=== PATIENT | female | born 1980 | race African-American/Black ===

== ENCOUNTER 2016-11-08 17:18 | Emergency (ER) | payer MEDICAID ==
[~2016-11-08] VITALS: Ht 162.6 cm; Wt 68.0 kg
[2016-11-08 17:18] VITALS: BP 106/74
--- NOTE | 2016-11-08 17:18 | NUR ---
Patient was BIBA at this time.
--- NOTE | 2016-11-08 18:13 | NUR ---
PT PLACED IN BED 7 BY EMS.
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
--- NOTE | 2016-11-08 19:46 | NUR ---
Patient being evaluated by physician at bedside.
[2016-11-08 20:58] VITALS: BP 100/56
--- NOTE | 2016-11-08 20:58 | NUR ---
Chart checked and completed. The patient's care was reviewed and supervised by Arthur Bergeron RN.
--- NOTE | 2016-11-08 20:58 | NUR ---
Patient discharged with v/s stable. Written and verbal after care instructions given and explained. Patient alert, oriented and verbalized understanding of instructions. Ambulatory with steady gait. All questions addressed prior to discharge. ID band removed. Patient advised to follow up with PMD. Rx of ASPIRIN 81 MG given. Patient educated on indication of medication including possible reaction and side effects. Opportunity to ask questions provided and answered.
== END 2016-11-08 20:58 | disposition home or self-care (01) ==
LOC: MED 17:18
DX: R07.9 Chest pain, unspecified (principal); M79.602 Pain in left arm; F17.200 Nicotine dependence, unspecified, uncomplicated
CPT/HCPCS: 93005; 99283

== ENCOUNTER 2017-07-07 14:45 | Emergency (ER) | payer MEDICAID ==
[~2017-07-07] VITALS: Ht 162.6 cm; Wt 62.6 kg
[2017-07-07 14:50] VITALS: BP 113/79
--- NOTE | 2017-07-07 14:55 | NUR ---
PT BIBA TO BED 3.
--- NOTE | 2017-07-07 14:55 | NUR ---
Bharti stern in [facility] - 07/07/17 at 1456 by MONIQUE PT BIBA TO BED 3.
--- NOTE | 2017-07-07 15:00 | NUR ---
37 YO F BIBA FROM HOME W/ C/O SHARP, NONRADIATING SUBSTERNAL CHEST PAIN 02/05. PT REPORTS, "IT IS HARD TO BREATHE". UPON ASSESSMENT, RR WNL AND UNLABORED. NO S/S OF RESPIRATORY DISTRESS NOTED. PT SPEAKING IN FULL SENTENCES AND IS A & O, AT TIMES ANSWERS QUESTIONS INAPPROPRIATELY. STATES, "I HAVE BLOOD CLOTS ALL OVER MY BODY. SEE? I AM GOING TO ". NO S/S OF DVT. SKIN INTACT. CMS INTACT. VSS.
[2017-07-07 15:57] LABS: ALBUMIN 3.9 g/dL (3.4-5.0); ANION GAP 12.1 (8-16); CARBON DIOXIDE 28.6 mmol/L (21-32); CREATININE 0.8 mg/dL (0.6-1.3); POTASSIUM 3.7 mmol/L (3.5-5.1); TOTAL BILIRUBIN 0.2 mg/dL (0.0-1.0)
[2017-07-07 16:01] LABS: BASOPHILS # (AUTO) 0.2 K/uL (0.00-0.22); EOSINOPHILS # (AUTO) 0.1 K/uL (0-0.4); EOSINOPHILS % (AUTO) 2.3 % (0.0-4.0); HEMATOCRIT 43.2 % (36-48); HEMOGLOBIN 14.1 g/dL (12.0-16.0); LYMPHOCYTES # (AUTO) 1.5 K/uL (2.5-16.5); MEAN CORPUSCULAR HEMOGLOBIN 31 pg (27-31); MEAN CORPUSCULAR HGB CONC 33 g/dL (33-37); MEAN CORPUSCULAR VOLUME 95 fL (80-94); MONOCYTES # (AUTO) 0.5 K/uL (0.8-1.0); MONOCYTES % (AUTO) 7.6 % (1.7-9.3); NEUTROPHILS # (AUTO) 3.7 K/uL (1.8-7.7); PLATELET COUNT (AUTO) 238 K/uL (140-450); RED BLOOD CELL COUNT(AUTO) 4.54 MIL/uL (4.20-5.40); RED CELL DISTRIBUTION WIDTH 13.1 % (11.6-13.7)
[2017-07-07] MEDS ORDERED: NACL 0.9% 1,000 ML IV ONE (16:05)
[2017-07-07] MEDS ORDERED: LORazepam 2 MG/ML VIAL IVP ONE (16:05)
--- NOTE | 2017-07-07 16:12 | NUR ---
ATTEMPTED URINE COLLECTION. PT SAID, "I DO NOT FEEL LIKE IT". PT EDUCATED ON IMPORTANCE OF UA AND REPLIED, " I CAN REFUSE THAT AND I AM". ALL QUESTIONS ADDRESSED. PT CPNTINUES TO REFUSE. WILL ATTEMPT TO COLLECT AGAIN AND CONTINUE TO MONITOR.
--- NOTE | 2017-07-07 16:14 | NUR ---
attempted iv started. pt stated "i don't want an iv, i want treatment for my blood clots...tell the doctor that I want medication to go"; er md katrin kirk aware.
--- NOTE | 2017-07-07 16:30 | NUR ---
pt states that she used meth this morning and says it was laced and she wants to know what it was laced with. ER MD Jaquez informed.
--- NOTE | 2017-07-07 16:36 | NUR ---
pt refused po medication; er md wilkes made aware.
[2017-07-07] MEDS: LORazepam 1 MG TAB PO ONE (16:37)
--- NOTE | 2017-07-07 16:38 | NUR ---
OFFERED TO GIVE THE PRINTED RESULTS OF XRAY TO PT. PT REFUSED COPY OF CHEST XRAY RESULTS.
[2017-07-07 16:39] LABS: PROTHROMBIN TIME 9.4 secs (10.8-13.4)
--- NOTE | 2017-07-07 16:39 | NUR ---
pt signed d/c form and w/ info regarding methamphetamine abuse. Pt states, "I am not leaving until this doctor gives me something that treats the bloodclots in my brain, heart, lungs, and all through my body. This is ridiculous". Pt refused PO ativan as ordered. pt refuses to leave the bed and has become angry/irrational behavior observed. security called to assure safety of patients/staff.
--- NOTE | 2017-07-07 16:47 | NUR ---
WOOD PANEL INSPECTOR AT BEDSIDE.
--- NOTE | 2017-07-07 16:53 | NUR ---
PT REFUSING ALL MEDS, STILL REFUSES UA. PT STATES THAT SHE USED METH THIS MORNING, CLAIMS IT WAS LACED AND WANTS TO KNOW WHAT IT WAS LACED WITH. CLAIMS "HUNDREDS" OF BLOOD CLOTS ARE IN HER BRAIN AND THROUGHOUT HER BODY. XRAY PERFORMED AND SHOWED NO SIGNS OF CLOTS. PT STATING, "XRAY WAS DONE INCORRECTLY. THERE IS NO WAY IT DIDN'T SHOW BLOOD CLOTS. THAT'S RIDICULOUS, THERE ARE THOUSANDS. I CAN FEEL THEM EACH. THE DOCTOR KNOWS NOTHING. I AM NOT SCHIZOPHRENIC." Addendum: 07/07/17 at 1700 by [email or web address] PT REFUSING ALL MEDS, STILL REFUSES UA. PT STATES THAT SHE USED METH THIS MORNING, CLAIMS IT WAS LACED AND WANTS TO KNOW WHAT IT WAS LACED WITH. CLAIMS "HUNDREDS" OF BLOOD CLOTS ARE IN HER BRAIN AND THROUGHOUT HER BODY. XRAY PERFORMED AND SHOWED NO SIGNS OF CLOTS. PT STATING, "XRAY WAS DONE INCORRECTLY. THERE IS NO WAY IT DIDN'T SHOW BLOOD CLOTS. THAT'S RIDICULOUS, THERE ARE THOUSANDS. I CAN FEEL THEM EACH. THE DOCTOR KNOWS NOTHING. I AM NOT SCHIZOPHRENIC." ER MD NOE MADE AWARE.
[2017-07-07 17:18] VITALS: BP 117/72
--- NOTE | 2017-07-07 17:18 | NUR ---
D/C PAPERWORK SIGNED BY PT. PT AMBULATED TO LOBBY FROM BED 3 WITH EVEN AND STEADY GAIT. PT REQUESTED COPIES OF BLOOD WORK AND EKG. COPIES PROVIDED PER REQUEST. PT ON PHONE TALKING IN COMPLETE AND COHERENT SENTENCES AT THIS TIME AND STATES SOMEONE WILL COME PICK HER UP. ADDRESS OF HOSPITAL PROVIDED TO PT.
== END 2017-07-07 17:18 | disposition home or self-care (01) ==
LOC: MED 14:45
DX: F19.10 Other psychoactive substance abuse, uncomplicated (principal); J45.909 Unspecified asthma, uncomplicated; F20.9 Schizophrenia, unspecified
CPT/HCPCS: 36415; 71045; 80053; 84484; 85025; 85610; 85730; 93005; 99285; Q0092

== ENCOUNTER 2017-12-16 20:01 | Emergency (ER) | payer MEDICAID ==
[~2017-12-16] VITALS: Ht 162.6 cm; Wt 62.6 kg
[2017-12-16 20:13] VITALS: BP 131/75
--- NOTE | 2017-12-16 20:17 | NUR ---
TO LOBBY A/W BED, AMBULATORY, VSS, SARAH NOTED
[2017-12-16 20:19] VITALS: BP 131/75
--- NOTE | 2017-12-16 20:39 | NUR ---
PT TAKEN TO BED 6
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
--- NOTE | 2017-12-16 21:47 | NUR ---
Dr. Ivy evaluating patient at bedside.
--- NOTE | 2017-12-16 22:15 | NUR ---
Patient discharged with v/s stable. Pt left without discharge instructions after t-dap and wound care was complete. Pt advised to follow-up with PCP for any further problems after t-dap given. Patient verbalized understanding. Ambulatory with steady gait. Advised to follow up with PMD.
== END 2017-12-16 22:15 | disposition home or self-care (01) ==
LOC: MED 20:01
DX: S11.95XA Open bite of unspecified part of neck, initial encounter (principal); W54.0XXA Bitten by dog, initial encounter; Y93.89 Activity, other specified; Y92.89 Other specified places as the place of occurrence of the external cause; Y99.8 Other external cause status; J45.909 Unspecified asthma, uncomplicated
CPT/HCPCS: 90471; 90715; 99283

== ENCOUNTER 2018-01-21 13:46 | Emergency (ER) | payer MEDICAID ==
[~2018-01-21] VITALS: Ht 165.1 cm; Wt 70.3 kg
[2018-01-21 13:47] VITALS: BP 137/84
--- NOTE | 2018-01-21 13:47 | NUR ---
NADIA GALARZA, CURRENTLY AWAITING BED
--- NOTE | 2018-01-21 14:02 | NUR ---
PT TAKEN TO LOBBY TO WAIT FOR NEXT AVAILABLE BED W/ VSS VIA W/C.
--- NOTE | 2018-01-21 14:12 | NUR ---
PT TAKEN TO BED 4 AT THIS TIME VIA W/C
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
[2018-01-21] MEDS ORDERED: HYDROcodone/APAP 7.5/325 MG 1 TAB PO ONE (15:15)
--- NOTE | 2018-01-21 15:32 | NUR ---
US AT BEDSIDE
[2018-01-21 16:42] VITALS: BP 130/80
== END 2018-01-21 16:42 | disposition home or self-care (01) ==
LOC: MED 13:46
DX: L03.115 Cellulitis of right lower limb (principal); J45.909 Unspecified asthma, uncomplicated
CPT/HCPCS: 93971; 99284; Q0092

== ENCOUNTER 2018-04-04 12:47 | Emergency (ER) | payer MEDICAID ==
[~2018-04-04] VITALS: Ht 165.1 cm; Wt 64.4 kg
[2018-04-04 12:59] VITALS: BP 153/93
--- NOTE | 2018-04-04 13:02 | NUR ---
patient to lobby with steady gait to wait for available bed. vss. nad.
--- NOTE | 2018-04-04 13:15 | NUR ---
PATIENT AMBULATED TO ER BED 12.
--- NOTE | 2018-04-04 13:15 | NUR ---
bib self with c/o staple removal to right knee s/p knee surgery in Dec. Swelling noted to right knee. Verenice intact. No discharge noted. Patient denies any recent fever or chills. VSS; PATIENT POSITIONED FOR COMFORT; HOB ELEVATED; BEDRAILS UP X1; BED DOWN. ER MD MADE AWARE OF PT STATUS.
[2018-04-04] MEDS ORDERED: IBUPROFEN 800 MG TAB PO ONE (14:00)
[2018-04-04] MEDS ORDERED: traMADol 50 MG TAB PO ONE (14:00)
--- NOTE | 2018-04-04 14:14 | NUR ---
UNABLE TO GIVE PATIENT MEDICATIONS. PT DECIDED NOT TO WAIT TO RECEIVE MEDICATIONS AND LEFT ED. PT EDUCATED ON LEAVING FACILITY WITHOUT MEDICATIONS. ER MD DR. AWAD NOTIFIED.
[2018-04-04 14:15] VITALS: BP 140/87
--- NOTE | 2018-04-04 14:15 | NUR ---
PT GIVEN VERBAL DISCHARGE, PT DID NOT WAIT TO RECEIVE PAPER DISCHARGE. PATIENT VERBALIZED UNDERSTANDING. AMBULATORY WITH STEADY GAIT. ALL QUESTIONS ADDRESSED PRIOR TO DISCHARGE. ADVISED TO FOLLOW UP WITH PMD.
[2018-04-04] MEDS ORDERED: NEOMYCIN/POLYMYXIN/BACITRACIN 0.9 GM/1 PKT TP ONE (14:20)
== END 2018-04-04 14:15 | disposition home or self-care (01) ==
LOC: MED 12:47
DX: S81.012D Laceration without foreign body, left knee, subsequent encounter (principal); J45.909 Unspecified asthma, uncomplicated; X58.XXXD Exposure to other specified factors, subsequent encounter
CPT/HCPCS: 99283

== ENCOUNTER 2018-07-22 22:39 | Emergency (ER) | payer MEDICAID ==
[~2018-07-22] VITALS: Ht 167.6 cm; Wt 68.0 kg
[2018-07-22 22:44] VITALS: BP 127/80
--- NOTE | 2018-07-22 22:45 | NUR ---
PT STABLE FOR ER LOBBY. PT PLACED IN LOBBY TO WAIT FOR NEXT AVAILABLE BED. WITH PATIENT. PT AMBULATORY WITH STEADY GAIT.
[2018-07-22 23:33] LABS: BASOPHILS % (AUTO) 1.1 % (0.0-2.0); EOSINOPHILS # (AUTO) 0.2 K/uL (0-0.4); EOSINOPHILS % (AUTO) 3.5 % (0.0-4.0); HEMATOCRIT 39.1 % (36-48); LYMPHOCYTES # (AUTO) 1.5 K/uL (2.5-16.5); LYMPHOCYTES % (AUTO) 31.8 % (20.5-51.1); MEAN CORPUSCULAR HEMOGLOBIN 31 pg (27-31); MEAN CORPUSCULAR HGB CONC 33 g/dL (33-37); MEAN CORPUSCULAR VOLUME 94.5 fL (80-94); MONOCYTES # (AUTO) 0.4 K/uL (0.8-1.0); MONOCYTES % (AUTO) 7.8 % (1.7-9.3); NEUTROPHILS # (AUTO) 2.6 K/uL (1.8-7.7); NEUTROPHILS % (AUTO) 55.8 % (42.2-75.2); PLATELET COUNT (AUTO) 262 K/uL (140-450); RED BLOOD CELL COUNT(AUTO) 4.14 MIL/uL (4.20-5.40); RED CELL DISTRIBUTION WIDTH 14.4 % (11.6-13.7); WHITE BLOOD COUNT (AUTO) 4.6 K/uL (4.8-10.8)
[2018-07-22 23:42] LABS: ANION GAP 15.3 (8-16); CARBON DIOXIDE 27.4 mmol/L (21-32); CHLORIDE 103 mmol/L (98-107); CREATININE 0.7 mg/dL (0.6-1.3); GFR ARICAN-AMERICAN 119 mL/min (>90); GLUCOSE 111 mg/dL (74-106); POTASSIUM 3.7 mmol/L (3.5-5.1); SODIUM SERUM 142 mmol/L (136-145); UREA NITROGEN, BLOOD 10 mg/dL (7-18)
[2018-07-22 23:48] LABS: ALBUMIN 4.1 g/dL (3.4-5.0); ASPARTATE AMINOTRANSFERASE 16 U/L (15-37); TOTAL BILIRUBIN 0.3 mg/dL (0.0-1.0)
[2018-07-23] MEDS ORDERED: NACL 0.9% 1,000 ML IV ONE (00:35)
--- NOTE | 2018-07-23 00:38 | NUR ---
AMBULATED TO ER BED 8
--- NOTE | 2018-07-23 00:38 | NUR ---
38 YO F BIB SELF CO VAGINAL BLEEDING X 1 DAY. PT STATES SHE "FEELS LIKE ALL MY BLOOD IS COMING OUT OF MY BODY AND MY BRAIN". PT A/O X 2. PT UNABLE TO ANSWER ALL QUESTIONS APPROPRIATELY. UNABLE TO OBTAIN PMH OR RX.
[2018-07-23 03:35] VITALS: BP 132/71
--- NOTE | 2018-07-23 03:35 | NUR ---
DISCHARGE PAPERWORK PROVIDED. VSS. 0/10 PAIN. PT VERBALIZED UNDERSTANDING OF DC INSTRUCTIONS. ALL QUESTIONS ANSWERED.
== END 2018-07-23 03:35 | disposition home or self-care (01) ==
LOC: MED 22:39
DX: N93.9 Abnormal uterine and vaginal bleeding, unspecified (principal); R42 Dizziness and giddiness; J45.909 Unspecified asthma, uncomplicated; F20.9 Schizophrenia, unspecified; F17.200 Nicotine dependence, unspecified, uncomplicated
CPT/HCPCS: 36415; 80053; 85025; 93005; 96360; 99284; J7030

== ENCOUNTER 2018-08-17 18:17 | Emergency (ER) | payer MEDICAID ==
[~2018-08-17] VITALS: Ht 162.6 cm; Wt 62.6 kg
--- NOTE | 2018-08-17 18:25 | NUR ---
PT AMBULATED TO BED 9
[2018-08-17 18:30] VITALS: BP 125/85
--- NOTE | 2018-08-17 18:34 | NUR ---
PT C/O L NOSE WOUND X 1 WEEK, CANDIDA DRAINAGE/SCAB NOTED, SANGUINOUS DRAINAGE. DENIES PAIN/ DRUG ABUSE.
--- NOTE | 2018-08-17 19:35 | NUR ---
Dr. Vitale evaluating patient at bedside.
[2018-08-17 19:50] VITALS: BP 131/78
--- NOTE | 2018-08-17 19:50 | NUR ---
DISCHARGE INSTRUCTIONS GIVEN. 0/10 PAIN. AFEBRILE WITH VSS. RX OF KEFLEX, BACTRIM, AND MOTRIN GIVEN. INSTRUCTED ON WOUND CARE. INSTRUCTED TO F/U WITH PCP AND WHEN TO RETURN TO ED. SIDE EFFECTS EXPLAINED. PT VERBALIZED UNDERSTANDING OF DC INSTRUCTIONS. ALL QUESTIONS ANSWERED.
== END 2018-08-17 19:50 | disposition home or self-care (01) ==
LOC: MED 18:17
DX: L01.00 Impetigo, unspecified (principal); J45.909 Unspecified asthma, uncomplicated; F17.200 Nicotine dependence, unspecified, uncomplicated
CPT/HCPCS: 99283

== ENCOUNTER 2019-02-08 22:22 | Emergency (ER) | payer MEDICAID ==
[~2019-02-08] VITALS: Ht 162.6 cm; Wt 60.3 kg
[2019-02-08 22:41] VITALS: BP 111/76
--- NOTE | 2019-02-09 00:19 | NUR ---
PT AMBULATED TO BED WITH FAMILY/FRIEND, WILL ALL BELONGINGS
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
--- NOTE | 2019-02-09 01:45 | NUR ---
DR RIVAS AT BEDSIDE
[2019-02-09] MEDS ORDERED: NYSTATIN 500 MU/5 ML UDC PO SCH (01:55)
[2019-02-09] MEDS ORDERED: DICYCLOMINE HCL LIQUID 20 MG, ALUMINUM HYD/MAG/SIMETHICONE 30 ML, LIDOCAINE VISCOUS 2% ... PO ONE ×3 (01:55)
[2019-02-09] MEDS ORDERED: LIDOCAINE VISCOUS 2% 20 ML UDC ONE (01:59)
[2019-02-09] MEDS ORDERED: ALUMINUM HYD/MAG/SIMETHICONE 30 ML UDC ONE (01:59)
--- NOTE | 2019-02-09 02:08 | NUR ---
CALLED TANNING SOLUTION MAKER FOR MEDICATION, STATES WILL BRING AFTER LUNCH
[2019-02-09] MEDS ORDERED: DICYCLOMINE HCL LIQUID 10 MG/5 ML UDC ONE (02:24)
--- NOTE | 2019-02-09 02:28 | NUR ---
HAND LENS POLISHER STATES SHE CAN NOT OVERRIDE THE NYSTATIN, DR COLLAZO NOTIFIED
[2019-02-09 03:14] VITALS: BP 119/75
--- NOTE | 2019-02-09 03:14 | NUR ---
Patient discharged with v/s stable. Written and verbal after care instructions given and explained. Patient alert, oriented and verbalized understanding of instructions. Ambulatory with steady gait. All questions addressed prior to discharge. ID band removed. Patient advised to follow up with PMD. Rx of NYSTATIN SUSPENSION AND FIRST-MOUTHWASH BLM COMPOUNDING KIT given. Patient educated on indication of medication including possible reaction and side effects. Opportunity to ask questions provided and answered. PT GIVEN HOMELESS RESOURCE PACKET, FOOD, HYGIENE PACKET, SOCKS, AND HAS SIGNED WAIVER
== END 2019-02-09 03:14 | disposition home or self-care (01) ==
LOC: MED 22:22
DX: K13.79 Other lesions of oral mucosa (principal); R10.9 Unspecified abdominal pain; J45.909 Unspecified asthma, uncomplicated; F17.200 Nicotine dependence, unspecified, uncomplicated; Z98.890 Other specified postprocedural states; Z71.6 Tobacco abuse counseling
CPT/HCPCS: 99283

== ENCOUNTER 2019-02-10 18:36 | Emergency (ER) | payer MEDICAID ==
[~2019-02-10] VITALS: Ht 167.6 cm; Wt 49.9 kg
[2019-02-10 18:39] VITALS: BP 126/70
--- NOTE | 2019-02-10 18:41 | NUR ---
urine cup handed to pt for sample
--- NOTE | 2019-02-10 18:45 | NUR ---
brought in by ems from streets; pt c/o ruq / rlq pain x today hx---ulcers, renal disease rx---amoxicillin. DENIES N/V/D; SKIN IS PINK/WARM/DRY; AAOX4 WITH EVEN AND STEADY GAIT; LUNGS CLEAR BL; HR EVEN AND REGULAR; PT DENIES ANY FEVER, CP, SOB, OR COUGH AT THIS TIME; PATIENT STATES PAIN OF 10/10 AT THIS TIME; VSS; PATIENT POSITIONED FOR COMFORT; HOB ELEVATED; BEDRAILS UP X2; BED DOWN. ER MD MADE AWARE OF PT STATUS.
--- NOTE | 2019-02-10 19:07 | NUR ---
endorsed to pm shift
--- NOTE | 2019-02-10 19:08 | NUR ---
RECEIVED REPORT FROM JASMIN PEREZ.
--- NOTE | 2019-02-10 19:36 | NUR ---
LAB AT BEDSIDE AT THIS TIME
--- NOTE | 2019-02-10 19:43 | NUR ---
PT TO CT SCAN AT THIS TIME.
[2019-02-10 19:54] LABS: BASOPHILS % (AUTO) 0.8 % (0.0-2.0); EOSINOPHILS # (AUTO) 0.3 K/uL (0-0.4); EOSINOPHILS % (AUTO) 6.8 % (0.0-4.0); HEMATOCRIT 39.2 % (36-48); HEMOGLOBIN 12.8 g/dL (12.0-16.0); LYMPHOCYTES # (AUTO) 1.2 K/uL (2.5-16.5); LYMPHOCYTES % (AUTO) 25.9 % (20.5-51.1); MEAN CORPUSCULAR HEMOGLOBIN 32 pg (27-31); MEAN CORPUSCULAR HGB CONC 33 g/dL (33-37); MEAN CORPUSCULAR VOLUME 96.9 fL (80-94); MONOCYTES # (AUTO) 0.4 K/uL (0.8-1.0); MONOCYTES % (AUTO) 9.2 % (1.7-9.3); NEUTROPHILS # (AUTO) 2.7 K/uL (1.8-7.7); NEUTROPHILS % (AUTO) 57.3 % (42.2-75.2); PLATELET COUNT (AUTO) 241 K/uL (140-450); RED BLOOD CELL COUNT(AUTO) 4.04 MIL/uL (4.20-5.40); RED CELL DISTRIBUTION WIDTH 13.8 % (11.6-13.7); WHITE BLOOD COUNT (AUTO) 4.8 K/uL (4.8-10.8)
--- NOTE | 2019-02-10 19:59 | NUR ---
PT RETURNED FROM CT
[2019-02-10 20:17] LABS: ANION GAP 13.6 (8-16); CARBON DIOXIDE 27.5 mmol/L (21-32); CREATININE 0.8 mg/dL (0.6-1.3); POTASSIUM 4.1 mmol/L (3.5-5.1)
[2019-02-10 20:26] LABS: ALBUMIN 3.7 g/dL (3.4-5.0); TOTAL BILIRUBIN 0.3 mg/dL (0.0-1.0)
[2019-02-10 22:12] VITALS: BP 120/64
--- NOTE | 2019-02-10 22:12 | NUR ---
DISCHARGE PAPERS GIVEN TO PT. PT STATES NO PAIN AT THIS TIME. VSS. RX OF OF BENTYL AND LIDOCAIN VISCOUS SOLUTION GIVEN. SIDE EFFECTS EXPLAINED. PROVIDED WITH FOOD, FLUIDS, AND RX DISCOUNT CARD. INSTRUCTED TO F/U WITH PCP AND WHEN TO RETURN TO ER. PT VERBALLIZED UNDERSTANDING OF DC INSTRUCTIONS. ALL QUESTIONS ANSWERED.
== END 2019-02-10 22:12 | disposition home or self-care (01) ==
LOC: MED 18:36
DX: R19.7 Diarrhea, unspecified (principal); Z87.11 Personal history of peptic ulcer disease
CPT/HCPCS: 36415; 80053; 81002; 81025; 83690; 85025; 99284

== ENCOUNTER 2019-04-10 15:47 | Emergency (ER) | payer MEDICAID ==
[~2019-04-10] VITALS: Ht 162.6 cm; Wt 59.0 kg
[2019-04-10 16:05] VITALS: BP 120/75
--- NOTE | 2019-04-10 16:05 | NUR ---
TO BED # 05 AMBULATORY
--- NOTE | 2019-04-10 16:30 | NUR ---
C/O "FOREIGN OBJECT IN HER FOOT". PT IS VERY FIGETY AND CRYING WHILE PICKING AT HER FOOT. PT HAS AN AREA OF RAW SKIN NOTED TO INSIDE OF HER HEEL. BED IN LOW POSITION, SIDE RAIL UP X1.
--- NOTE | 2019-04-10 16:46 | NUR ---
Dr. Hernandez is evaluating the patient at bedside.
[2019-04-10] MEDS ORDERED: IBUPROFEN 600 MG TAB PO ONE (16:55)
[2019-04-10] MEDS ORDERED: BACITRACIN OINT 500 UNITS/GM PKT TP ONE (17:00)
--- NOTE | 2019-04-10 17:20 | NUR ---
Patient discharged with v/s stable. Written and verbal after care instructions given and explained. Patient verbalized understanding. Ambulatory with steady gait. All questions addressed prior to discharge. Advised to follow up with PMD.
[2019-04-10 17:39] VITALS: BP 120/75
== END 2019-04-10 17:20 | disposition home or self-care (01) ==
LOC: MED 15:47
DX: S91.002A Unspecified open wound, left ankle, initial encounter (principal); L98.499 Non-pressure chronic ulcer of skin of other sites with unspecified severity; X58.XXXA Exposure to other specified factors, initial encounter; Y93.89 Activity, other specified; Y92.89 Other specified places as the place of occurrence of the external cause; Y99.8 Other external cause status
CPT/HCPCS: 99282

== ENCOUNTER 2019-06-13 15:09 | Emergency (ER) | payer MEDICAID ==
[~2019-06-13] VITALS: Ht 162.6 cm; Wt 62.6 kg
--- NOTE | 2019-06-13 15:09 | NUR ---
Patient BIBA BLS, transferred to bed 4. RN evaluating patient at bedside.
[2019-06-13 15:13] VITALS: BP 135/81
[2019-06-13] MEDS ORDERED: NACL 0.9% 1,000 ML IV ONE (15:30)
--- NOTE | 2019-06-13 15:30 | NUR ---
PT SCREAMING STATING "DONT POKE ME WITH THAT FUCKING NEEDLE" VERBAL ABUSIVE TO STAFF. DR PRINGLE AWARE.
--- NOTE | 2019-06-13 15:45 | NUR ---
PT DISCHARGE PAPERWORK READY. REFUSING TO LEAVE. SECURITY CALLED.
--- NOTE | 2019-06-13 15:47 | NUR ---
SECURITY AT BEDSIDE.
--- NOTE | 2019-06-13 15:52 | NUR ---
PT REFUSED TO SIGN DISCHARGE PAPERWORK.
[2019-06-13 15:53] VITALS: BP 135/81
--- NOTE | 2019-06-13 15:53 | NUR ---
PT LEFT FACILITY WITH WOMEN'S APPAREL SALESPERSON.
== END 2019-06-13 15:53 | disposition home or self-care (01) ==
LOC: MED 15:09
DX: F45.8 Other somatoform disorders (principal); R03.0 Elevated blood-pressure reading, without diagnosis of hypertension; J45.909 Unspecified asthma, uncomplicated; F17.210 Nicotine dependence, cigarettes, uncomplicated
CPT/HCPCS: 93005; 99283

== ENCOUNTER 2019-12-18 18:16 | Emergency (ER) | payer MEDICAID ==
[~2019-12-18] VITALS: Ht 177.8 cm; Wt 99.8 kg
[2019-12-18 18:19] VITALS: BP 149/80
--- NOTE | 2019-12-18 18:27 | NUR ---
Patient ambulated to bed 7. RN evaluating patient at bedside.
--- NOTE | 2019-12-18 18:28 | NUR ---
PER PT "MOUTH & GUMS ARE HURTING", "MY GUMS ARE BLEEDING UNDER THE TONGUE", AND "THERE ARE LITTLE BUMPS UNDER MY TONGUE". PT BELIEVES IT IS AN INFECTION SPREADING OVER X 4 DAYS. PT FURTHER STATES THAT GUMS ARE BLEEDING. NO ACTIVE BLEEDING NOTED UNDER THE TONGUE. PLACED ON PULSE OX, HR READS HIGH 110S. WHEN ASKED IF SHE HAS CP, PT STATES "YEAH, THERE'S A BUMP ON MY CHEST ...". 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 HX -DENIES
--- NOTE | 2019-12-18 18:41 | NUR ---
ROSIO SINGH EVALUATING PT AT BEDSIDE
[2019-12-18] MEDS ORDERED: IBUPROFEN 400 MG TAB PO ONE (19:15)
--- NOTE | 2019-12-18 19:19 | NUR ---
Patient discharged with v/s stable. Written and verbal after care instructions given and explained. Patient alert, oriented and verbalized understanding of instructions. Ambulatory with steady gait. All questions addressed prior to discharge. ID band removed. Patient advised to follow up with PMD. Rx of augmentin, and naproxen given. Patient educated on indication of medication including possible reaction and side effects. Opportunity to ask questions provided and answered.
== END 2019-12-18 19:19 | disposition home or self-care (01) ==
LOC: MED 18:16
DX: K08.89 Other specified disorders of teeth and supporting structures (principal); J45.909 Unspecified asthma, uncomplicated; F17.200 Nicotine dependence, unspecified, uncomplicated
CPT/HCPCS: 99283

== ENCOUNTER 2020-03-24 23:37 | Emergency (ER) | payer MEDICAID ==
[~2020-03-24] VITALS: Ht 162.6 cm; Wt 59.0 kg
[2020-03-24 23:53] VITALS: BP 111/77
--- NOTE | 2020-03-24 23:55 | NUR ---
PT AMBULATED TO BED 9 WITH STEADY GAIT.
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
--- NOTE | 2020-03-25 00:07 | NUR ---
ERMD AT BEDSIDE FOR MEDICAL EVALUATION.
--- NOTE | 2020-03-25 00:09 | NUR ---
Female Utilization Review Coordinator accompanied female patient for Rib Exam performed by Dr. Prasad.
--- NOTE | 2020-03-25 00:22 | NUR ---
EMT AT BEDSIDE FOR EKG.
--- NOTE | 2020-03-25 01:13 | NUR ---
PT RETURNED FROM RADIOLOGY AT THIS TIME VIA W/C.
[2020-03-25 01:31] VITALS: BP 117/82
== END 2020-03-25 01:31 | disposition home or self-care (01) ==
LOC: MED 23:37
DX: R07.9 Chest pain, unspecified (principal); J45.909 Unspecified asthma, uncomplicated; Z71.6 Tobacco abuse counseling
CPT/HCPCS: 71101; 93005; 99283

== ENCOUNTER 2020-04-01 13:33 | Emergency (ER) | payer MEDICAID ==
[~2020-04-01] VITALS: Ht 162.6 cm; Wt 59.0 kg
--- NOTE | 2020-04-01 13:42 | NUR ---
PT TAKEN TO BED 3.
[2020-04-01 13:44] VITALS: BP 136/95
--- NOTE | 2020-04-01 13:52 | NUR ---
39 y/o female c/o generalized body rash and sore throat. Pt states she put cumin spice in food yesterday. Pt states she has decreased energy levels and feels "itchiness to neck and chest" with some chills to right arm. PMH: Asthma NKA
[2020-04-01 14:43] VITALS: BP 136/95
--- NOTE | 2020-04-01 14:44 | NUR ---
Patient discharged with v/s stable. Written and verbal after care instructions given and explained. Patient alert, oriented and verbalized understanding of instructions. Ambulatory with steady gait. All questions addressed prior to discharge. ID band removed. Patient advised to follow up with PMD. Rx of atarax 25mg PO q8h PRN itchiness or rash given. Patient educated on indication of medication including possible reaction and side effects. Opportunity to ask questions provided and answered.
== END 2020-04-01 14:44 | disposition home or self-care (01) ==
LOC: MED 13:33
DX: T78.1XXA Other adverse food reactions, not elsewhere classified, initial encounter (principal); X58.XXXA Exposure to other specified factors, initial encounter; J45.909 Unspecified asthma, uncomplicated; Z98.890 Other specified postprocedural states
CPT/HCPCS: 99282; Q0163

== ENCOUNTER 2020-09-01 13:18 | Emergency (ER) | payer MEDICAID ==
[~2020-09-01] VITALS: Ht 165.1 cm; Wt 68.3 kg
[2020-09-01 13:32] VITALS: BP 98/39
--- NOTE | 2020-09-01 13:40 | NUR ---
PATIENT AMBULATED TO BED 1.
--- NOTE | 2020-09-01 13:45 | NUR ---
40/F presents to ED with C/O lexi that need to be removed. Patient states lexi were placed 3 weeks ago at [facility] but she was unable to return to have them removed sooner due to transportation. Patient denies pain, but states she is feeling anxious and states she "thinks the lexi are making her heart beat fast." Patient appears anxious and nervous. Patient placed on bedside manager hair, heart rate 111. Staple remover placed at bedside.
[2020-09-01 14:20] VITALS: BP 110/73
== END 2020-09-01 14:20 | disposition home or self-care (01) ==
LOC: MED 13:18
DX: S01.91XD Laceration without foreign body of unspecified part of head, subsequent encounter (principal); J45.909 Unspecified asthma, uncomplicated; Z48.00 Encounter for change or removal of nonsurgical wound dressing; X58.XXXD Exposure to other specified factors, subsequent encounter
CPT/HCPCS: 99281

== ENCOUNTER 2020-10-05 19:59 | Emergency (ER) | payer MEDICAID ==
[~2020-10-05] VITALS: Ht 162.6 cm; Wt 68.9 kg
[2020-10-05 20:14] VITALS: BP 131/84
--- NOTE | 2020-10-05 20:33 | NUR ---
PT AMBULATED TO BED 6
--- NOTE | 2020-10-05 20:35 | NUR ---
40 Y/O FEMALE CAME TO THE ED C/O RECTAL BLEEDING. PT STATES, "I STARTED HAVING BLOOD IN MY STOOL THIS MORNING AT 7AM. IT IS LIKE BRIGHT RED STOOL. I DON'T FEEL ANY PAIN, JUST A LITTLE BIT OF DIARRHEA" DENIES N/V/D; SKIN IS PINK/WARM/DRY; AAOX4 WITH EVEN AND STEADY GAIT; LUNGS CLEAR BL; HR EVEN AND REGULAR; PT DENIES ANY FEVER, CP, SOB, OR COUGH AT THIS TIME; PATIENT STATES PAIN OF 0/10 AT THIS TIME; VSS; PATIENT POSITIONED FOR COMFORT; HOB ELEVATED; BEDRAILS UP X2; BED DOWN. ER MD MADE AWARE OF PT STATUS. PMH: DENIES NKA
--- NOTE | 2020-10-05 21:30 | NUR ---
LAB AT BEDSIDE.
[2020-10-05 21:37] VITALS: BP 131/84
[2020-10-05 21:48] LABS: BASOPHILS % (AUTO) 0.8 % (0.0-2.0); EOSINOPHILS # (AUTO) 0.1 K/uL (0-0.4); EOSINOPHILS % (AUTO) 2.6 % (0.0-4.0); HEMOGLOBIN 13.5 g/dL (12.0-16.0); LYMPHOCYTES # (AUTO) 1.2 K/uL (2.5-16.5); LYMPHOCYTES % (AUTO) 24.9 % (20.5-51.1); MEAN CORPUSCULAR HEMOGLOBIN 33 pg (27-31); MEAN CORPUSCULAR HGB CONC 34 g/dL (33-37); MEAN CORPUSCULAR VOLUME 96.9 fL (80-94); MONOCYTES # (AUTO) 0.4 K/uL (0.8-1.0); MONOCYTES % (AUTO) 7.2 % (1.7-9.3); NEUTROPHILS # (AUTO) 3.2 K/uL (1.8-7.7); NEUTROPHILS % (AUTO) 64.5 % (42.2-75.2); PLATELET COUNT (AUTO) 248 K/uL (140-450); RED BLOOD CELL COUNT(AUTO) 4.13 MIL/uL (4.20-5.40); RED CELL DISTRIBUTION WIDTH 13.8 % (11.6-13.7)
[2020-10-05 21:59] LABS: ANION GAP 14.1 (8-16); CARBON DIOXIDE 24.7 mmol/L (21-32); CREATININE 0.8 mg/dL (0.6-1.3); POTASSIUM 3.8 mmol/L (3.5-5.1)
[2020-10-05 22:02] LABS: PROTHROMBIN TIME 9.5 secs (10.8-13.4)
[2020-10-05 22:05] LABS: ALBUMIN 3.7 g/dL (3.4-5.0); TOTAL BILIRUBIN 0.3 mg/dL (0.0-1.0)
--- NOTE | 2020-10-05 23:30 | NUR ---
PT TRIED TO DO BM, FOR STOOL SAMPLE, BUT PT STATED, "I CAN'T GO, THERE'S NOTHING IN THERE. "
--- NOTE | 2020-10-06 01:30 | NUR ---
PATIENT ELOPED FROM FACILITY. DISCHARGE INSTRUCTIONS NOT GIVEN TO PATIENT. DR. TELLEZ NOTIFIED.
== END 2020-10-06 01:30 | disposition left against medical advice (07) ==
LOC: MED 19:59
DX: K92.1 Melena (principal); J45.909 Unspecified asthma, uncomplicated
CPT/HCPCS: 36415; 80053; 85025; 85610; 85730; 86886; 86900; 86901; 99283

== ENCOUNTER 2020-11-28 07:53 | Emergency (ER) | payer MEDICAID ==
[~2020-11-28] VITALS: Ht 165.1 cm; Wt 70.8 kg
[2020-11-28 08:05] VITALS: BP 131/92
[2020-11-28] MEDS ORDERED: NYST-71 TP (10:07)
[2020-11-28] MEDS ORDERED: MEBE100T PO (10:07)
[2020-11-28 10:11] VITALS: BP 131/92
== END 2020-11-28 10:12 | disposition home or self-care (01) ==
LOC: MED 07:53
DX: B83.9 Helminthiasis, unspecified (principal); J45.909 Unspecified asthma, uncomplicated; Z79.899 Other long term (current) drug therapy
CPT/HCPCS: 81002; 81025; 99283

== ENCOUNTER 2021-02-04 05:16 | Emergency (ER) | payer MEDICAID ==
[~2021-02-04] VITALS: Ht 165.1 cm; Wt 67.6 kg
[~2021-02-04 05:16] MED LIST: MEBE100T PO; NYST-71 TP
[2021-02-04 05:19] VITALS: BP 129/93
--- NOTE | 2021-02-04 05:25 | NUR ---
PT AMBULATED TO ER BED 09
--- NOTE | 2021-02-04 05:43 | NUR ---
40 YO F BIB SELF WITH C/C OF TONSILITIS X1YR. PT STATES HER THROAT HAS BEEN HURTING 11/05 FOR 1 YR . DENIES FEVER, CHILLS, N/V/D. SARAH BERNARD AT BEDSIDE EXAMINING PT. NO LYMPH SWELLING PALPABLE. DENIES HX, RX, AND ALLERG Addendum: 02/04/21 at 0550 by [facility] 40 YO F BIB SELF WITH C/C OF TONSILITIS X1YR. PT STATES HER THROAT HAS BEEN HURTING 02/05 FOR 1 YR . DENIES FEVER, CHILLS, N/V/D. SARAH BERNARD AT BEDSIDE EXAMINING PT. NO LYMPH SWELLING PALPABLE. DENIES HX, RX, AND ALLERG
[2021-02-04] MEDS ORDERED: IBUPROFEN 600 MG TAB PO ONE (05:45)
[2021-02-04] MEDS ORDERED: IBUP-2213 PO (05:46)
[2021-02-04 05:55] VITALS: BP 129/93
== END 2021-02-04 05:55 | disposition home or self-care (01) ==
LOC: MED 05:16
DX: B34.9 Viral infection, unspecified (principal); J45.909 Unspecified asthma, uncomplicated; F17.210 Nicotine dependence, cigarettes, uncomplicated; F12.90 Cannabis use, unspecified, uncomplicated; Z79.899 Other long term (current) drug therapy
CPT/HCPCS: 99282

== ENCOUNTER 2021-05-24 19:56 | Emergency (ER) | payer MEDICAID ==
[~2021-05-24 19:56] MED LIST changes: +IBUP-2213 PO
--- NOTE | 2021-05-24 20:54 | NUR ---
called for patient-- no answer at this time
--- NOTE | 2021-05-24 21:00 | NUR ---
called for patient-- no answer
--- NOTE | 2021-05-24 21:00 | NUR ---
PATIENT LEFT WITHOUT BEING SEEN BY DR. Zepeda. NO FURTHER CARE PROVIDED FOR PATIENT.
== END 2021-05-24 20:54 | disposition left against medical advice (07) ==
LOC: MED 19:56
DX: R07.89 Other chest pain (principal); Z53.21 Procedure and treatment not carried out due to patient leaving prior to being seen by health care provider

== ENCOUNTER 2022-05-05 10:30 | Emergency (ER) | payer MEDICAID ==
[~2022-05-05] VITALS: Ht 165.1 cm; Wt 68.0 kg
[2022-05-05 10:41] VITALS: BP 118/84
--- NOTE | 2022-05-05 10:44 | NUR ---
42/F WALKED IN C/O RIGHT LOWER TOOTHACHE S/P PIECES BREAKING OFF 2 DAYS AGO WHILE EATING FOOD. PT REPORTS 10/10 THROBBING PAIN. AAO4 ,AMBULATORY, VITALS STABLE. PMH: ASTHMA
--- NOTE | 2022-05-05 12:01 | NUR ---
PATIENT LEFT WITHOUT BEING SEEN BY DR. HERNANDEZ. NO FURTHER CARE PROVIDED FOR PATIENT.
== END 2022-05-05 12:01 | disposition left against medical advice (07) ==
LOC: MED 10:30
DX: K08.89 Other specified disorders of teeth and supporting structures (principal); Z53.21 Procedure and treatment not carried out due to patient leaving prior to being seen by health care provider

== ENCOUNTER 2022-05-05 22:24 | Emergency (ER) | payer MEDICAID ==
[~2022-05-05] VITALS: Ht 165.1 cm; Wt 68.0 kg
[2022-05-05 22:30] VITALS: BP 141/90
--- NOTE | 2022-05-05 22:33 | NUR ---
TO LOBBY A/W BED AMBULATORY
--- NOTE | 2022-05-06 00:07 | NUR ---
PT CALLED BY DR. ESCALANTE. NO ANSWER
== END 2022-05-06 00:07 | disposition left against medical advice (07) ==
LOC: MED 22:24
DX: K08.89 Other specified disorders of teeth and supporting structures (principal); Z53.21 Procedure and treatment not carried out due to patient leaving prior to being seen by health care provider

== ENCOUNTER 2022-12-02 09:22 | Emergency (ER) | payer MEDICAID ==
[~2022-12-02] VITALS: Ht 165.1 cm; Wt 66.0 kg
[2022-12-02 10:12] VITALS: BP 151/69; PULSE 91; RESP 20; TEMP 99.6; O2SAT 100
[2022-12-02] MEDS ORDERED: DEXAMETHASONE 10 MG/ML VIAL IM ONE (11:45)
[2022-12-02] MEDS ORDERED: PROM118S5 PO (12:29)
[2022-12-02] MEDS ORDERED: IBUP-2213 PO (12:29)
[2022-12-02] MEDS ORDERED: BENZ-300 PO (12:29)
[2022-12-02] MEDS ORDERED: DEXAMETHASONE 10 MG/ML VIAL ONE (12:55)
[2022-12-02 13:01] VITALS: BP 149/71; PULSE 87; RESP 20; TEMP 98.7; O2SAT 100
--- NOTE | 2022-12-02 13:01 | NUR ---
Patient discharged with v/s stable. Written and verbal after care instructions given and explained. Patient alert, oriented and verbalized understanding of instructions. Ambulatory with steady gait. All questions addressed prior to discharge. ID band removed. Patient advised to follow up with PMD. Rx of CEPACOLS SORE THROAT LOZENGE, IBUPROFEN, PROMETHAZINE-dm SYRUP given. Patient educated on indication of medication including possible reaction and side effects. Opportunity to ask questions provided and answered.
== END 2022-12-02 13:01 | disposition home or self-care (01) ==
LOC: MED 09:22
DX: B34.9 Viral infection, unspecified (principal); Z20.822 Contact with and (suspected) exposure to COVID-19; J45.909 Unspecified asthma, uncomplicated; Z79.899 Other long term (current) drug therapy
CPT/HCPCS: 87081; 99283; J1100

== ENCOUNTER 2023-01-28 17:26 | Emergency (ER) | payer MEDICAID ==
[~2023-01-28] VITALS: Ht 165.1 cm; Wt 63.5 kg
[~2023-01-28 17:26] MED LIST changes: +BENZ-300 PO; +PROM118S5 PO
[2023-01-28 17:47] VITALS: BP 137/90; PULSE 109; RESP 20; TEMP 97.3; O2SAT 98
[2023-01-28 20:01] LABS: BASOPHILS # (AUTO) 0.1 K/uL (0.00-0.22); BASOPHILS % (AUTO) 1.1 % (0.0-2.0); EOSINOPHILS # (AUTO) 0.2 K/uL (0-0.4); EOSINOPHILS % (AUTO) 4.2 % (0.0-4.0); HEMATOCRIT 38.3 % (36-48); HEMOGLOBIN 12.8 g/dL (12.0-16.0); LYMPHOCYTES # (AUTO) 1.5 K/uL (2.5-16.5); LYMPHOCYTES % (AUTO) 32.8 % (20.5-51.1); MEAN CORPUSCULAR HEMOGLOBIN 31 pg (27-31); MEAN CORPUSCULAR HGB CONC 33 g/dL (33-37); MEAN CORPUSCULAR VOLUME 93.8 fL (80-94); MONOCYTES # (AUTO) 0.4 K/uL (0.8-1.0); MONOCYTES % (AUTO) 8.7 % (1.7-9.3); NEUTROPHILS # (AUTO) 2.5 K/uL (1.8-7.7); NEUTROPHILS % (AUTO) 53.2 % (42.2-75.2); PLATELET COUNT (AUTO) 273 K/uL (140-450); RED BLOOD CELL COUNT(AUTO) 4.08 MIL/uL (4.20-5.40); RED CELL DISTRIBUTION WIDTH 14.3 % (11.6-13.7); WHITE BLOOD COUNT (AUTO) 4.7 K/uL (4.8-10.8)
[2023-01-28 20:21] LABS: CALCIUM 9.1 mg/dL (8.5-10.1); CARBON DIOXIDE 25.5 mmol/L (21-32); CREATININE 0.8 mg/dL (0.6-1.3); POTASSIUM 3.5 mmol/L (3.5-5.1)
[2023-01-28] MEDS ORDERED: CEPH250C16 PO (21:46)
== END 2023-01-28 21:55 | disposition left against medical advice (07) ==
LOC: MED 17:26
DX: N93.9 Abnormal uterine and vaginal bleeding, unspecified (principal); J45.909 Unspecified asthma, uncomplicated; F41.9 Anxiety disorder, unspecified; Z79.899 Other long term (current) drug therapy; Z79.1 Long term (current) use of non-steroidal anti-inflammatories (NSAID); Z79.2 Long term (current) use of antibiotics
CPT/HCPCS: 36415; 76856; 80048; 85025; 99284

== ENCOUNTER 2023-02-12 14:56 | Emergency (ER) | payer MEDICAID ==
[~2023-02-12] VITALS: Ht 165.1 cm; Wt 63.5 kg
[~2023-02-12 14:56] MED LIST changes: +CEPH250C16 PO
[2023-02-12 15:17] VITALS: BP 134/72; PULSE 105; RESP 18; TEMP 97.3; O2SAT 100
[2023-02-12] MEDS ORDERED: HYD1C TP (15:46)
== END 2023-02-12 15:57 | disposition home or self-care (01) ==
LOC: MED 14:56
DX: B88.9 Infestation, unspecified (principal); J45.909 Unspecified asthma, uncomplicated; Z79.899 Other long term (current) drug therapy
CPT/HCPCS: 99281

== ENCOUNTER 2023-02-28 11:52 | Emergency (ER) | payer MEDICAID ==
[~2023-02-28] VITALS: Ht 165.1 cm; Wt 70.3 kg
[~2023-02-28 11:52] MED LIST changes: +HYD1C TP
[2023-02-28 12:08] VITALS: BP 125/75; PULSE 121; RESP 20; TEMP 98.4; O2SAT 100
[2023-02-28 14:57] LABS: BASOPHILS # (AUTO) 0.1 K/uL (0.00-0.22); EOSINOPHILS # (AUTO) 0.2 K/uL (0-0.4); EOSINOPHILS % (AUTO) 3.5 % (0.0-4.0); LYMPHOCYTES # (AUTO) 1.6 K/uL (2.5-16.5); LYMPHOCYTES % (AUTO) 24.7 % (20.5-51.1); MEAN CORPUSCULAR HEMOGLOBIN 32 pg (27-31); MEAN CORPUSCULAR HGB CONC 33 g/dL (33-37); MEAN CORPUSCULAR VOLUME 94.8 fL (80-94); MONOCYTES # (AUTO) 0.4 K/uL (0.8-1.0); MONOCYTES % (AUTO) 5.9 % (1.7-9.3); NEUTROPHILS # (AUTO) 4.1 K/uL (1.8-7.7); NEUTROPHILS % (AUTO) 64.9 % (42.2-75.2); PLATELET COUNT (AUTO) 255 K/uL (140-450); RED BLOOD CELL COUNT(AUTO) 4.12 MIL/uL (4.20-5.40); RED CELL DISTRIBUTION WIDTH 14.2 % (11.6-13.7); WHITE BLOOD COUNT (AUTO) 6.3 K/uL (4.8-10.8)
[2023-02-28 15:09] LABS: ALANINE AMINOTRANSFERASE 15 U/L (12-78); ALBUMIN 3.8 g/dL (3.4-5.0); ALKALINE PHOSPHATASE 110 U/L (50-136); ANION GAP 16.4 (8-16); ASPARTATE AMINOTRANSFERASE 14 U/L (15-37); CALCIUM 8.6 mg/dL (8.5-10.1); CARBON DIOXIDE 23.3 mmol/L (21-32); CHLORIDE 102 mmol/L (98-107); CREATININE 0.8 mg/dL (0.6-1.3); GFR ARICAN-AMERICAN 100 mL/min (>90); GFR NON ARICAN-AMERICAN 83 mL/min (>90); GLUCOSE 121 mg/dL (74-106); POTASSIUM 3.7 mmol/L (3.5-5.1); SODIUM SERUM 138 mmol/L (136-145); THYROID STIMULATING HORMONE 2.02 uIU/mL (0.34-3.74); TOTAL BILIRUBIN 0.3 mg/dL (0.0-1.0); TOTAL PROTEIN, SERUM 7.7 g/dL (6.4-8.2); UREA NITROGEN, BLOOD 12 mg/dL (7-18)
[2023-02-28] MEDS ORDERED: NACL 0.9% 1,000 ML IV ONE (15:35)
[2023-02-28 17:03] VITALS: BP 125/75; PULSE 121; RESP 20; TEMP 98.4; O2SAT 100
== END 2023-02-28 17:03 | disposition home or self-care (01) ==
LOC: MED 11:52
DX: R00.2 Palpitations (principal); R00.0 Tachycardia, unspecified; J45.909 Unspecified asthma, uncomplicated; Z59.00 Homelessness unspecified; Z79.899 Other long term (current) drug therapy; Z79.1 Long term (current) use of non-steroidal anti-inflammatories (NSAID); Z79.2 Long term (current) use of antibiotics
CPT/HCPCS: 36415; 71045; 80053; 81025; 84443; 84484; 85025; 85379; 93005; 96360; 99285; J7030

== ENCOUNTER 2023-03-19 07:37 | Emergency (ER) | payer MEDICAID ==
[~2023-03-19] VITALS: Ht 165.1 cm; Wt 75.3 kg
[2023-03-19 07:58] VITALS: BP 130/85; PULSE 107; RESP 20; TEMP 98.2; O2SAT 99
[2023-03-19] MEDS ORDERED: VALA10002 PO (08:23)
[2023-03-19] MEDS ORDERED: MUPI1OIN TP (08:23)
[2023-03-19 09:20] VITALS: BP 130/85; PULSE 107; RESP 20; TEMP 98.2; O2SAT 99
[2023-03-19 09:32] LABS: HIV RAPID SCREEN NON-REACTIVE (NON REACTIV)
[2023-03-19 09:49] LABS: RAPID PLASMA REAGIN NON-REACTIVE (Non Reactiv)
== END 2023-03-19 09:20 | disposition home or self-care (01) ==
LOC: MED 07:37
DX: L98.498 Non-pressure chronic ulcer of skin of other sites with other specified severity (principal); L29.0 Pruritus ani; Z79.899 Other long term (current) drug therapy
CPT/HCPCS: 36415; 86592; 87252; 87529; 99283

== ENCOUNTER 2023-06-06 22:37 | Emergency (ER) | payer MEDICAID, OTHER ==
[~2023-06-06] VITALS: Ht 162.6 cm; Wt 68.0 kg
[~2023-06-06 22:37] MED LIST changes: +MUPI1OIN TP; +VALA10002 PO
[2023-06-06 22:43] VITALS: BP 119/82; PULSE 101; RESP 18; TEMP 97.8; O2SAT 100
[2023-06-08] MEDS ORDERED: CAPS1ADH5 TP (16:26)
[2023-06-08] MEDS ORDERED: NAPR-1704 PO (16:26)
[2023-06-08] MEDS ORDERED: DICL100G32 TP (16:26)
== END 2023-06-07 | disposition left against medical advice (07) ==
LOC: MED 22:37
DX: R51.9 Headache, unspecified (principal); Z53.21 Procedure and treatment not carried out due to patient leaving prior to being seen by health care provider
CPT/HCPCS: 99281

== ENCOUNTER 2023-06-08 14:23 | Emergency (ER) | payer OTHER ==
[~2023-06-08] VITALS: Ht 165.1 cm; Wt 74.4 kg
[2023-06-08 14:40] VITALS: BP 125/84; PULSE 103; RESP 16; TEMP 97; O2SAT 98
[2023-06-08] MEDS ORDERED: CAPS1ADH5 TP (16:26)
[2023-06-08] MEDS ORDERED: DICL100G32 TP (16:26)
[2023-06-08] MEDS ORDERED: NAPR-1704 PO (16:26)
[2023-06-08] MEDS: KETOROLAC 30 MG/ML VIAL IM ONE (16:44)
[2023-06-08 16:50] VITALS: BP 125/84; PULSE 103; RESP 16; TEMP 97; O2SAT 98
== END 2023-06-08 16:49 | disposition home or self-care (01) ==
LOC: MED 14:23
DX: M54.50 Low back pain, unspecified (principal); M51.36 Other intervertebral disc degeneration, lumbar region; L72.8 Other follicular cysts of the skin and subcutaneous tissue; Z79.899 Other long term (current) drug therapy
CPT/HCPCS: 72100; 76536; 81002; 81025; 99284; Q0092; J1885

== ENCOUNTER 2023-11-05 08:06 | Emergency (ER) | payer OTHER ==
[~2023-11-05] VITALS: Ht 165.1 cm; Wt 68.0 kg
[~2023-11-05 08:06] MED LIST changes: +CAPS1ADH5 TP; +DICL100G32 TP; +NAPR-1704 PO
[2023-11-05 08:22] VITALS: BP 127/94; PULSE 111; RESP 18; TEMP 98.3; O2SAT 99
[2023-11-05 10:06] VITALS: BP 127/94; PULSE 111; RESP 18; TEMP 98.3; O2SAT 99
== END 2023-11-05 10:07 | disposition home or self-care (01) ==
LOC: MED 08:06
DX: L84 Corns and callosities (principal); F17.210 Nicotine dependence, cigarettes, uncomplicated; J45.909 Unspecified asthma, uncomplicated; Z79.1 Long term (current) use of non-steroidal anti-inflammatories (NSAID); Z79.2 Long term (current) use of antibiotics; Z79.899 Other long term (current) drug therapy; Z98.890 Other specified postprocedural states
CPT/HCPCS: 73630; 99283

== ENCOUNTER 2023-11-21 19:12 | Emergency (ER) | payer OTHER ==
[~2023-11-21] VITALS: Ht 165.1 cm; Wt 68.0 kg
[2023-11-21 19:25] VITALS: BP 135/84; PULSE 90; RESP 16; TEMP 97.9; O2SAT 100
== END 2023-11-21 21:20 | disposition left against medical advice (07) ==
LOC: MED 19:12
DX: R19.7 Diarrhea, unspecified (principal); R10.9 Unspecified abdominal pain; R07.89 Other chest pain; R06.02 Shortness of breath; R11.0 Nausea; J45.909 Unspecified asthma, uncomplicated; Z79.899 Other long term (current) drug therapy; Z79.2 Long term (current) use of antibiotics
CPT/HCPCS: 99281

== ENCOUNTER 2024-01-26 12:27 | Emergency (ER) | payer OTHER ==
[~2024-01-26] VITALS: Ht 165.1 cm; Wt 68.9 kg
[2024-01-26 12:43] VITALS: BP 121/79; PULSE 97; RESP 15; TEMP 98.7; O2SAT 100
[2024-01-26 13:15] VITALS: O2SAT 100
[2024-01-26 13:26] LABS: APPEARANCE,URINE CLEAR (CLEAR); BILIRUBIN,URINE 1+ (NEGATIVE); BLOOD, URINE NEGATIVE (NEGATIVE); COLOR,URINE YELLOW (YELLOW); LEUKOCYTE ESTERASE ,URINE NEGATIVE (NEGATIVE); NITRITE, URINE NEGATIVE (NEGATIVE); PROTEIN,URINE TRACE (NEGATIVE); UGLUCOSE NEGATIVE (NEGATIVE)
[2024-01-26 13:32] LABS: ICTOTEST NEGATIVE (NEGATIVE)
[2024-01-26] MEDS: IBUPROFEN 600 MG TAB PO ONE (14:06)
[2024-01-26] MEDS: KETOROLAC 60 MG/2 ML VIAL IM ONE (14:07)
[2024-01-26] MEDS ORDERED: IBUP-2213 PO (14:38)
[2024-01-26] MEDS ORDERED: MEDR10TA PO (14:38)
== END 2024-01-26 14:45 | disposition home or self-care (01) ==
LOC: MED 12:27
DX: N93.8 Other specified abnormal uterine and vaginal bleeding (principal); R03.0 Elevated blood-pressure reading, without diagnosis of hypertension; J45.909 Unspecified asthma, uncomplicated; F17.200 Nicotine dependence, unspecified, uncomplicated; Z79.899 Other long term (current) drug therapy; Z98.890 Other specified postprocedural states
CPT/HCPCS: 76830; 81003; 81025; 99284; Q0092; J1885